=== PATIENT | female | born 2000 | race American Indian/Alaskan Native ===

== ENCOUNTER 2022-07-09 15:01 | Emergency (ER) | payer MEDICAID ==
[~2022-07-09] VITALS: Ht 167.6 cm; Wt 97.2 kg
[~2022-07-09 15:01] MED LIST: ALBE200T14 PO; GUAI100S25 PO; IBUP-2766 PO; NO HOME MEDS; [UNRECOGNIZED DRUG - CODE] PO
[2022-07-09 15:16] VITALS: BP 136/85
== END 2022-07-09 16:24 | disposition home or self-care (01) ==
LOC: ER 15:01
DX: M25.531 Pain in right wrist (principal); Y04.8XXA Assault by other bodily force, initial encounter; Y93.89 Activity, other specified; Y92.89 Other specified places as the place of occurrence of the external cause; Y99.8 Other external cause status
CPT/HCPCS: 73130; 99283